=== PATIENT | male | born 1975 | race Caucasian/White ===

== ENCOUNTER 2016-03-21 22:45 | Emergency (ER) | payer OTHER ==
[~2016-03-21] VITALS: Ht 172.7 cm; Wt 80.0 kg
[2016-03-21 23:17] VITALS: BP 168/106; PULSE 82; RESP 16; TEMP 98.5; O2SAT 97
[2016-03-21] MEDS ORDERED: AMLO5TAB2 PO (23:22)
[2016-03-21] MEDS ORDERED: LISI-515 PO (23:22)
--- NOTE | 2016-03-22 01:08 | PD ---
HPI Chief Complaint: Medical Clearance Time Seen by Provider: 01:03 Travel History International Travel<30 days: No Contact w/Intl Traveler<30days: No Traveled to known affect area: No History of Present Illness HPI 40-year-old male here as a [place] act. [place], drinking. Patient states he is unsure, but somehow police were involved and patient was escorted off the property and brought here as a [place] act. Patient has been nothing but cooperative since his emergency department arrival. Ambulates independently without issue and denies complaints. PFSH Past Medical History Diminished Hearing: No Hypertension: Yes Tetanus Vaccination: < 5 Years Influenza Vaccination: No Past Surgical History Tonsillectomy: Yes Social History Alcohol Use: Yes (SOCIALLY) Tobacco Use: Yes (1PPD) Substance Use: No Allergies-Medications (Allergen,Severity, Reaction): Coded Allergies: No Known Allergies (Unverified , 03/21/16) Reported Meds & Prescriptions Reported Meds & Active Scripts Active Reported Amlodipine (Amlodipine Besylate) 5 Mg Tab 5 Mg PO DAILY Lisinopril 20 Mg Tab 20 Mg PO DAILY Review of Systems ROS Limitations: Intoxication Except as stated in HPI: all other systems reviewed are Neg Physical Exam Exam Limitations: Intoxication Narrative GENERAL: Well-appearing male in no acute distress SKIN: Warm and dry. HEAD: Normocephalic. EYES: Pupils equal and round. No scleral icterus. No injection or drainage. ENT: Mucous membranes pink and moist. NECK: Supple CARDIOVASCULAR: Regular rate and rhythm. RESPIRATORY: No accessory muscle use. MUSCULOSKELETAL: Normal gait NEUROLOGICAL: Awake and alert. Motor grossly within normal limits. Normal speech. PSYCHIATRIC: Appropriate mood and affect; insight and judgment normal. Data Data Last Documented VS Vital Signs Date Time Temp Pulse Resp B/P Pulse Ox O2 Delivery O2 Flow Rate FiO2 03/21/16 23:19 16 03/21/16 23:17 98.5 82 168/106 97 MDM Medical Decision Making Medical Screen Exam Complete: Yes Emergency Medical Condition: Yes Medical Record Reviewed: Yes Differential Diagnosis 40-year-old male here brought here as a [place] act by police. Differential includes alcohol intoxication, alcohol abuse. No evidence of withdrawal. Narrative Course Patient has been cooperative, able ambulate independently. He is intoxicated but denies any complaints and is requesting to go home at this time. Patient will call a sober ride and is discharged home. Diagnosis Primary Impression: Alcohol intoxication Qualified Code: F10.120 - Alcohol intoxication, uncomplicated Referrals: Primary Care Physician as needed Med/Other Pt SpecificInfo: No Change to Meds Disposition: 01 DISCHARGE HOME Condition: Stable Aydee Petersen MD Mar 22, 2016 01:08
[2016-03-22 01:15] VITALS: BP 166/81
== END 2016-03-22 01:16 | disposition home or self-care (01) ==
LOC: NEPA 22:45
DX: F10.129 Alcohol abuse with intoxication, unspecified (principal); F17.200 Nicotine dependence, unspecified, uncomplicated
CPT/HCPCS: 99284